=== PATIENT | female | born 1975 | race African-American/Black ===

== ENCOUNTER 2019-07-21 05:32 | Inpatient (IN) ==
[2019-07-21] MEDS ORDERED: VANCOMYCIN 1,000 MG VIAL ONE (05:52)
[2019-07-21] MEDS ORDERED: ceFAZolin 1,000 MG VIAL ONE (05:52)
[2019-07-21] MEDS ORDERED: ceFAZolin 1,000 MG in SYRINGE 1 EACH IV ONE (06:30)
[2019-07-21] MEDS ORDERED: VANCOMYCIN INJ 1,000 MG in SODIUM CHLORIDE 0.9% 250 ML IV ONE (06:30)
[2019-07-21] MEDS ORDERED: DIAZEPAM 5 MG TABLET PO ONE (06:53)
[2019-07-21] MEDS ORDERED: FAMOTIDINE 20 MG TABLET PO ONE (06:53)
[2019-07-21] MEDS ORDERED: GABAPENTIN 400 MG CAPSULE PO ONE (06:53)
[2019-07-21] MEDS ORDERED: ACETAMINOPHEN 500 MG TABLET PO ONE (06:53)
[2019-07-21] MEDS ORDERED: SCOPOLAMINE 1.5 MG PATCH TRANSDERM ONE ×2 (06:53→07:26)
[2019-07-21] MEDS ORDERED: LACTATED RINGERS 1,000 ML IV SCH (07:00)
[2019-07-21] MEDS ORDERED: FAMOTIDINE 20 MG TABLET ONE (07:26)
[2019-07-21] MEDS ORDERED: DIAZEPAM 5 MG TABLET ONE (07:26)
[2019-07-21] MEDS ORDERED: ACETAMINOPHEN 500 MG TABLET ONE (07:26)
[2019-07-21] MEDS ORDERED: GABAPENTIN 400 MG CAPSULE ONE (07:26)
[2019-07-21] MEDS ORDERED: fentaNYL 100 MCG/2 ML VIAL ONE ×2 (07:40→10:26)
[2019-07-21] MEDS ORDERED: BUPIVACAINE 0.5% 50 ML VIAL ONE (07:40)
[2019-07-21] MEDS ORDERED: MIDAZOLAM 2 MG/2 ML VIAL ONE (07:40)
[2019-07-21] MEDS ORDERED: DEXAMETHASONE 4 MG/1 ML VIAL ONE (07:41)
[2019-07-21] MEDS ORDERED: EPINEPHrine 1 MG/ML VIAL ONE (07:41)
[2019-07-21] MEDS ORDERED: TRANEXAMIC ACID 1,000 MG/10 ML VIAL ONE (07:57)
[2019-07-21] MEDS ORDERED: PROMETHAZINE 25 MG/1 ML VIAL IM PRN (08:38)
[2019-07-21] MEDS ORDERED: TEMAZEPAM 7.5 MG CAPSULE PO PRN (08:38)
[2019-07-21] MEDS ORDERED: BISACODYL 10 MG SUPP RECTAL PRN (08:38)
[2019-07-21] MEDS ORDERED: ONDANSETRON 4 MG/2 ML VIAL IV PRN (08:38)
[2019-07-21] MEDS ORDERED: LACTULOSE 20 GM/30 ML UDCUP PO PRN (08:38)
[2019-07-21] MEDS ORDERED: MAGNESIUM HYDROXIDE SUSP 30 ML UDCUP PO PRN (08:38)
[2019-07-21] MEDS ORDERED: diphenhydrAMINE CAP 25 MG CAPSULE PO PRN (08:38)
[2019-07-21] MEDS ORDERED: ERGOCALCIFEROL 50,000 UNIT CAPSULE PO SCH (09:00)
[2019-07-21] MEDS ORDERED: SEVOFLURANE 1 UNIT/15 MINUTE INH ONE (10:25)
[2019-07-21] MEDS ORDERED: PROPOFOL 200 MG/20 ML VIAL IV ONE (10:25)
[2019-07-21] MEDS ORDERED: ROCURONIUM 100 MG/10 ML VIAL IV ONE (10:26)
[2019-07-21] MEDS ORDERED: LACTATED RINGERS 1,000 ML IV ONE (10:26)
[2019-07-21] MEDS ORDERED: NEOSTIGMINE 10 MG/10 ML VIAL ONE (10:26)
[2019-07-21] MEDS ORDERED: GLYCOPYRROLATE 0.4 MG/2 ML VIAL ONE (10:26)
[2019-07-21] MEDS ORDERED: ONDANSETRON 4 MG/2 ML VIAL ONE (10:26)
[2019-07-21] MEDS ORDERED: SUCCINYLCHOLINE 200 MG/10 ML VIAL ONE (10:26)
[2019-07-21] MEDS ORDERED: METOPROLOL TARTRATE 5 MG/5 ML VIAL IV ONE (10:32)
[2019-07-21] MEDS ORDERED: HYDROmorphone 2 MG/1 ML VIAL IV PRN (10:37)
[2019-07-21] MEDS: ASPIRIN EC 81 MG TABLET PO SCH (12:11)
[2019-07-21] MEDS: LACTOBACILLUS ACIDOPHILUS/BULGARICUS CAPLET PO SCH (12:11)
[2019-07-21] MEDS: DOCUSATE SODIUM 100 MG CAPSULE PO SCH ×2 (12:11→21:38)
[2019-07-21] MEDS: PANTOPRAZOLE 40 MG TABLET PO SCH (12:12)
[2019-07-21] MEDS: amLODIPine 5 MG TABLET PO SCH (12:12)
[2019-07-21] MEDS: MORPHINE 4 MG/1 ML VIAL IV PRN ×2 (12:12→18:13)
[2019-07-21] MEDS: POTASSIUM CHLORIDE 20 MEQ TABLET PO SCH (12:12)
[2019-07-21] MEDS: LINACLOTIDE 145 MCG CAPSULE PO SCH (12:12)
[2019-07-21] MEDS: ceFAZolin 2,000 MG in PREMIX 1 EACH IV SCH ×2 (14:40→21:38)
[2019-07-21] MEDS: FONDAPARINUX 2.5 MG/0.5 ML SYRINGE SUBCUT SCH (21:38)
[2019-07-22 05:17] LABS: Basophils % 0.2 % (0.0-0.8); Eosinophils # 0.1 10*3/uL (0.0-0.87); Eosinophils % 0.5 % (0.00-10.9); Hematocrit 32.7 VOL% (35.7-47.0); Hemoglobin 10.7 GM/DL (12.0-16.0); Immature Granulocytes % 0.8 %; Immature Granulocytes Absolute 0.08 #; Lymphocytes # 1.6 10*3/uL (1.4-4.0); Lymphocytes % 16.8 % (21.3-54.2); Mean Corpuscular HGB Conc 32.7 GM/DL (32-36); Mean Corpuscular Volume 87.2 FL (87-102); Mean Platelet Volume 9.9 FL (9.6-12.0); Monocytes % 11.6 % (1.7-12.7); Neutrophils % 70.1 % (38.7-73.9); Platelet Count 264 T/CUMM (130-400); Red Blood Count 3.75 MC/CUMM (3.8-5.5); Red Cell Distribution Width 14.1 % (9.3-17.3); White Blood Count 9.5 T/CUMM (4-12)
[2019-07-22 05:41] LABS: Calcium 8.2 MG/DL (8.5-10.1); Osmolality,Calculated 277.4 MOS/KG (273-304)
[2019-07-22] MEDS: LACTOBACILLUS ACIDOPHILUS/BULGARICUS CAPLET PO SCH (09:06)
[2019-07-22] MEDS: ASPIRIN EC 81 MG TABLET PO SCH (09:07)
[2019-07-22] MEDS: MORPHINE 4 MG/1 ML VIAL IV PRN ×2 (09:07→16:34)
[2019-07-22] MEDS: PANTOPRAZOLE 40 MG TABLET PO SCH (09:07)
[2019-07-22] MEDS: POTASSIUM CHLORIDE 20 MEQ TABLET PO SCH (09:07)
[2019-07-22] MEDS: amLODIPine 5 MG TABLET PO SCH (09:07)
[2019-07-22] MEDS: DOCUSATE SODIUM 100 MG CAPSULE PO SCH ×2 (09:07→21:14)
[2019-07-22] MEDS: LINACLOTIDE 145 MCG CAPSULE PO SCH (10:06)
[2019-07-22] MEDS: FONDAPARINUX 2.5 MG/0.5 ML SYRINGE SUBCUT SCH (21:14)
[2019-07-23] MEDS: MORPHINE 4 MG/1 ML VIAL IV PRN ×3 (03:42→18:26)
[2019-07-23] MEDS: LINACLOTIDE 145 MCG CAPSULE PO SCH (08:01)
[2019-07-23] MEDS: ASPIRIN EC 81 MG TABLET PO SCH (09:00)
[2019-07-23] MEDS: amLODIPine 5 MG TABLET PO SCH (09:00)
[2019-07-23] MEDS: PANTOPRAZOLE 40 MG TABLET PO SCH (09:00)
[2019-07-23] MEDS: LACTOBACILLUS ACIDOPHILUS/BULGARICUS CAPLET PO SCH (09:00)
[2019-07-23] MEDS: DOCUSATE SODIUM 100 MG CAPSULE PO SCH ×2 (09:00→20:51)
[2019-07-23] MEDS: POTASSIUM CHLORIDE 20 MEQ TABLET PO SCH (09:00)
[2019-07-23] MEDS: METHOCARBAMOL 500 MG TABLET PO PRN (12:23)
[2019-07-23] MEDS: FONDAPARINUX 2.5 MG/0.5 ML SYRINGE SUBCUT SCH (20:51)
[2019-07-24] MEDS: MORPHINE 4 MG/1 ML VIAL IV PRN ×2 (00:44→06:19)
[2019-07-24] MEDS: METHOCARBAMOL 500 MG TABLET PO PRN (00:44)
[2019-07-24 08:31] VITALS: BP 138/90
[2019-07-24] MEDS: LINACLOTIDE 145 MCG CAPSULE PO SCH (09:54)
[2019-07-24] MEDS: POTASSIUM CHLORIDE 20 MEQ TABLET PO SCH (09:55)
[2019-07-24] MEDS: LACTOBACILLUS ACIDOPHILUS/BULGARICUS CAPLET PO SCH (09:55)
[2019-07-24] MEDS: amLODIPine 5 MG TABLET PO SCH (09:55)
[2019-07-24] MEDS: DOCUSATE SODIUM 100 MG CAPSULE PO SCH (09:55)
[2019-07-24] MEDS: ASPIRIN EC 81 MG TABLET PO SCH (09:55)
[2019-07-24] MEDS: PANTOPRAZOLE 40 MG TABLET PO SCH (09:55)
== END 2019-07-24 12:55 | disposition home health service (06) | DRG 470 ==
LOC: N.OR 05:32 → N.SDSINP 05:32 → N.3E 09:34
PROVIDERS: ADMIT Orthopaedic Surgery; ATTEND Orthopaedic Surgery

== ENCOUNTER 2021-11-10 05:57 | Inpatient (IN) ==
[2021-11-02 11:50] LABS: Basophils # 0.1 10*3/uL (0.0-0.2); Basophils % 0.7 % (0.0-0.8); Eosinophils # 0.5 10*3/uL (0.0-0.87); Eosinophils % 6.4 % (0.00-10.9); Hematocrit 35.4 VOL% (35.7-47.0); Hemoglobin 10.7 GM/DL (12.0-16.0); Immature Granulocytes % 0.5 %; Immature Granulocytes Absolute 0.04 #; Lymphocytes # 2.1 10*3/uL (1.4-4.0); Mean Corpuscular HGB Conc 30.2 GM/DL (32-36); Mean Corpuscular Volume 77.1 FL (87-102); Mean Platelet Volume 9.5 FL (9.6-12.0); Neutrophils % 53.4 % (38.7-73.9); Platelet Count 425 T/CUMM (130-400); Red Blood Count 4.59 MC/CUMM (3.8-5.5); Red Cell Distribution Width 17.3 % (9.3-17.3); White Blood Count 7.3 T/CUMM (4-12)
[2021-11-02 12:01] LABS: Calcium 9.1 MG/DL (8.5-10.1); Osmolality,Calculated 285.8 MOS/KG (273-304); Potassium 3.7 MMOL/L (3.5-5.1)
[~2021-11-10 05:57] MED LIST: SCOPOLAMINE 1.5 MG PATCH TRANSDERM ONE
[2021-11-10] MEDS ORDERED: SCOPOLAMINE 1.5 MG PATCH TRANSDERM ONE ×2 (06:07→06:58)
[2021-11-10] MEDS ORDERED: BUPIVACAINE MPF 0.25% 30 ML VIAL ONE ×2 (06:17→07:41)
[2021-11-10] MEDS ORDERED: HEPARIN 5,000 UNIT/1 ML VIAL SUBCUT ONE (06:30)
[2021-11-10] MEDS ORDERED: PANTOPRAZOLE 40 MG VIAL IV ONE (06:30)
[2021-11-10] MEDS ORDERED: HYOSCYAMINE 0.125 MG TABLET SL ONE ×2 (06:30→07:00)
[2021-11-10] MEDS ORDERED: ACETAMINOPHEN INJ 1,000 MG/100 ML VIAL IV ONE (06:30)
[2021-11-10] MEDS: LACTATED RINGERS 1,000 ML IV SCH ×3 (06:40→22:18)
[2021-11-10] MEDS ORDERED: MIDAZOLAM 2 MG/2 ML VIAL ONE (06:40)
[2021-11-10] MEDS ORDERED: fentaNYL 100 MCG/2 ML VIAL ONE ×2 (06:40→10:03)
[2021-11-10] MEDS ORDERED: LIDOCAINE 1%/EPI INJ 20 ML VIAL ONE (07:41)
[2021-11-10] MEDS ORDERED: BUPIVACAINE LIPOSOMAL 20 ML/266 MG VIAL ONE (07:41)
[2021-11-10] MEDS ORDERED: TISSUE ADHESIVE 1 EACH APPLICATOR TOP ONE (07:41)
[2021-11-10] MEDS ORDERED: propofoL 200 MG/20 ML VIAL IV ONE (07:44)
[2021-11-10] MEDS ORDERED: LIDOCAINE 2% 5 ML VIAL ONE ×2 (07:44)
[2021-11-10] MEDS ORDERED: SUCCINYLCHOLINE 200 MG/10 ML VIAL ONE (07:44)
[2021-11-10] MEDS ORDERED: LABETALOL 20 MG/4 ML SYRINGE IV ONE (07:44)
[2021-11-10] MEDS ORDERED: SEVOFLURANE 1 UNIT/15 MINUTE INH ONE (07:44)
[2021-11-10] MEDS ORDERED: ROCURONIUM 50 MG/5 ML VIAL IV ONE ×2 (07:44→09:03)
[2021-11-10] MEDS ORDERED: SODIUM CHLORIDE 0.9% 1,000 ML IV ONE (07:44)
[2021-11-10] MEDS ORDERED: NEOSTIGMINE 10 MG/10 ML VIAL ONE (09:35)
[2021-11-10] MEDS ORDERED: GLYCOPYRROLATE 0.4 MG/2 ML VIAL ONE (09:35)
[2021-11-10] MEDS ORDERED: ONDANSETRON 4 MG/2 ML VIAL IV PRN ×2 (10:56→11:18)
[2021-11-10] MEDS: HYDROmorphone 2 MG/1 ML VIAL IV PRN ×2 (11:00→11:15)
[2021-11-10] MEDS ORDERED: hydrALAZINE 20 MG/1 ML VIAL IV PRN (11:18)
[2021-11-10] MEDS ORDERED: HYDROcod/ACETAMIN 7.5-325 MG/15 ML UDCUP PO PRN (11:18)
[2021-11-10] MEDS ORDERED: NITROGLYCERIN 2% OINT 1 INCH/GM PACK TOP ONE (11:31)
[2021-11-10] MEDS ORDERED: ALUM/MAG/SIMETH/LIDO VISC 1:1 30 ML BOTTLE PO ONE ×2 (11:48)
[2021-11-10] MEDS ORDERED: INFLUENZA VIRUS VACCINE 0.5 ML SYRINGE IM ONE (13:19)
[2021-11-10] MEDS: MORPHINE 2 MG/1 ML SYRINGE IV PRN ×3 (14:18→22:22)
[2021-11-10] MEDS: SIMETHICONE CHEW 80 MG TABLET PO SCH ×2 (15:55→20:40)
[2021-11-10] MEDS ORDERED: PHENOL 1.4% THROAT SPRAY 177 ML BOTTLE PO PRN (19:12)
[2021-11-10] MEDS: ceFAZolin 2,000 MG/50 ML DUPLEX IV SCH (19:21)
[2021-11-11] MEDS: MORPHINE 2 MG/1 ML SYRINGE IV PRN ×4 (00:26→10:29)
[2021-11-11] MEDS: ceFAZolin 2,000 MG/50 ML DUPLEX IV SCH (00:33)
[2021-11-11] MEDS: LACTATED RINGERS 1,000 ML IV SCH ×4 (01:44→08:48)
[2021-11-11 05:58] LABS: Basophils % 0.3 % (0.0-0.8); Hematocrit 32.5 VOL% (35.7-47.0); Hemoglobin 9.9 GM/DL (12.0-16.0); Immature Granulocytes % 1.1 %; Immature Granulocytes Absolute 0.12 #; Lymphocytes # 1.4 10*3/uL (1.4-4.0); Lymphocytes % 12.6 % (21.3-54.2); Mean Corpuscular HGB Conc 30.5 GM/DL (32-36); Mean Corpuscular Volume 75.8 FL (87-102); Mean Platelet Volume 9.5 FL (9.6-12.0); Monocytes % 10.3 % (1.7-12.7); Neutrophils % 75.7 % (38.7-73.9); Platelet Count 362 T/CUMM (130-400); Red Blood Count 4.29 MC/CUMM (3.8-5.5); Red Cell Distribution Width 16.8 % (9.3-17.3); White Blood Count 11.1 T/CUMM (4-12)
[2021-11-11 06:19] LABS: Calcium 8.6 MG/DL (8.5-10.1); Osmolality,Calculated 272.7 MOS/KG (273-304); Potassium 2.6 MMOL/L (3.5-5.1)
[2021-11-11] MEDS: SIMETHICONE CHEW 80 MG TABLET PO SCH (08:14)
[2021-11-11] MEDS ORDERED: PANTOPRAZOLE 40 MG VIAL IV SCH (09:00)
[2021-11-11] MEDS ORDERED: ENOXAPARIN 40 MG/0.4 ML SYRINGE SUBCUT SCH (09:00)
[2021-11-11] MEDS: POTASSIUM CHLORIDE RIDER 10 MEQ/100 ML PREMIX IV SCH ×4 (10:26→14:17)
[2021-11-11] MEDS ORDERED: SIMETHICONE CHEW 80 MG TABLET PO SCH (15:00)
[2021-11-11 16:04] VITALS: BP 141/76
== END 2021-11-11 16:10 | disposition home or self-care (01) | DRG 621 ==
LOC: N.OR 05:57 → N.SDSINP 06:00 → EDSTATUS 07:30 → N.3E 12:20 → N.OR 11-11 16:10 → N.3E 11-12 12:15
PROVIDERS: ADMIT Surgery; ATTEND Surgery